=== PATIENT | female | born 1955 ===

== ENCOUNTER 2019-01-20 11:03 | Emergency (ER) | payer BC ==
[2019-01-20] MEDS ORDERED: Lidocaine 1% w EPI 1:100,000* MDV 20 ML VIAL INJ ONE (13:26)
--- NOTE | 2019-01-20 13:32 | UC ---
Laceration HPI - HPI Summary HPI Summary: 63-year-old female presents with complaints of left elbow injury with laceration. States yesterday she was walking while carrying some dishes when she missed a step down was in her balance and falling forward landing on her left knee and elbow. States the dishes broke and she fell onto several pieces of broken dishes. Complains of tenderness to the left elbow the reports has full range of motion. Bleeding was controlled with some direct pressure. Reports bruising to the anterior left knee although denies any pain and is able to walk and bear weight without complaint. States did not hit her head or lose consciousness. Reports is allergic to tetanus. Denies fever, chills, numbness , tingling. - History Of Current Complaint Chief Complaint: UCLaceration Stated Complaint: ELBOW LACERATION Time Seen by Provider: 01/20/19 12:42 Hx Obtained From: Patient Pain Intensity: 8 - Allergies/Home Medications Allergies/Adverse Reactions: Allergies Allergy/AdvReac Type Severity Reaction Status Date / Time aspirin Allergy Bleeding Verified 01/20/19 12:05 Tetanus Vaccines and Toxoid Allergy Hives/Diff. Verified 01/20/19 12:05 Breathing/I tching Home Medications: Home Medications Empagliflozin [Jardiance] 10 mg PO 01/20/19 [History] Fexofenadine (NF) [Sally 180 (NF)] 180 mg PO DAILY 01/20/19 [History Confirmed 01/20/19] Lisinopril/Hydrochlorothiazide [Lisinopril-Hctz 20-25 mg Tab] 1 each PO DAILY [History Confirmed 01/20/19] LoraTADine TAB(NF) [Claritin 10 MG TAB(NF)] 10 mg PO DAILY 01/20/19 [History Confirmed 01/20/19] Lovastatin (NF) [Mevacor (NF)] 10 mg PO 1800 01/20/19 [History Confirmed ] PMH/Surg Hx/FS Hx/Imm Hx Endocrine History: Diabetes, Dyslipidemia Cardiovascular History: Hypertension - Surgical History Surgical History: None - Family History Known Family History: Positive: Non-Contributory - Social History Lives: With Family Alcohol Use: Occasionally Substance Use Type: None Smoking Status (MU): Former Smoker - Immunization History Most Recent Tetanus Shot: UTD Review of Systems All Other Systems Reviewed And Are Negative: Yes Constitutional: Negative: Fever, Chills Skin: Positive: Other - See HPI Respiratory: Positive: Negative Cardiovascular: Positive: Negative Gastrointestinal: Positive: Negative Genitourinary: Positive: Negative Motor: Negative: Weakness Neurovascular: Negative: Decreased Sensation Musculoskeletal: Negative: Arthralgia, Decreased ROM Neurological: Positive: Negative Is Patient Immunocompromised?: No Physical Exam - Summary Physical Exam Summary: GENERAL APPEARANCE: Well developed, well nourished, alert and cooperative, and appears to be in no acute distress. HEAD: Atraumatic. Normocephalic. NECK: Neck supple, non-tender. Full ROM. CARDIAC: Normal S1 and S2. No S3, S4 or murmurs. Rhythm is regular. There is no peripheral edema, cyanosis or pallor. Extremities are warm and well perfused. Capillary refill is less than 2 seconds. Peripheral pulses intact. LUNGS: Clear to auscultation without rales, rhonchi, wheezing or diminished breath sounds. ABDOMEN: Positive bowel sounds. Soft, nondistended, nontender. No guarding or rebound. No masses or hepatosplenomegally. MUSKULOSKELETAL: ROM intact to all extremities. No joint erythema or tenderness. Normal muscular development. Normal gait. BACK: No spinal deformity or tenderness, decreased range of motion or muscular spasm. EXTREMITIES: Stellate T-shaped laceration to the left posterior elbow with bleeding controlled. Tenderness with palpation over the radial head. Full ROM. Circulation and sensation intact. Eccymosis to the anterior left knee over the patella without gross deformity. Full ROM. Circulation and sensation intact. SKIN: Skin normal color, texture and turgor. Triage Information Reviewed: Yes Vital Signs: Initial Vital Signs Temp 98.8 F 01/20/19 12:12 Pulse 87 01/20/19 12:12 Resp 17 01/20/19 12:12 BP 138/79 01/20/19 12:12 Pulse Ox 98 01/20/19 12:12 Vital Signs Reviewed: Yes Procedures - Procedure Summary Procedure Summary: Procedure note: Laceration repair left elbow Informed consent was obtained before procedure started and the appropriate timeout was taken. X-rays were reviewed prior to start of procedure. Local anesthesia was achieved using 3 ml of lidocaine 1% with epinephrine. The wound was thoroughly explored then copiously irrigated with sterile saline. There was some excess tissue along the edges of the wound which were sharply excised using iris scissors. The wound margins were brought into good alignment and 3 interrupted sutures were placed using 5-0 Ethilon. Total length of wound after repair was 1.5 cm. Estimated blood loss was minimal. A dressing was applied to the area by the RN. Anticipatory guidance, as well as standard post-procedure care was discussed with patient. Return precautions are given. The patient tolerated the procedure well without complications. Patient is to follow up in 10-14 days for suture removal and evaluation of the laceration. Diagnostics - Radiology No standard instances Radiology Interpretation Completed By: Radiologist Summary of Radiographic Findings: Order Information: ELBOW LEFT 3+VWS. INDICATION: LEFT elbow and upper arm pain following fall. Laceration and bruising. Assess for fracture and foreign body. COMPARISON: No relevant prior exams available on the [facility] PACS for comparison. TECHNIQUE: AP, lateral, and oblique views LEFT elbow. REPORT: Mild anterior fat pad displacement indicating a small joint effusion. No cortical disruption or suspicious trabecular irregularity to suggest fracture. Normal articular alignment. Nonfocal soft tissue swelling. No conspicuous foreign body evident. IMPRESSION : #. No foreign body evident. #. A radiographic occult fracture most typically involving the radial head is not entirely excluded given history of trauma and presence of joint effusion despite absence of a conspicuous fracture plane on the current exam. Laceration Course/Dx - Course/Dx Course Of Treatment: 63-year-old female presents with complaints of left elbow injury with laceration. States yesterday she was walking while carrying some dishes when she missed a step down was in her balance and falling forward landing on her left knee and elbow. States the dishes broke and she fell onto several pieces of broken dishes. Complains of tenderness to the left elbow the reports has full range of motion. Bleeding was controlled with some direct pressure. Reports bruising to the anterior left knee although denies any pain and is able to walk and bear weight without complaint. States did not hit her head or lose consciousness. Reports is allergic to tetanus. Denies fever, chills, numbness , tingling. Afebrile. Vital signs stable. Exam was remarkable for a stellate T-shaped laceration to the left posterior elbow with bleeding controlled. Tenderness with palpation over the radial head. Full ROM. Circulation and sensation intact. Eccymosis to the anterior left knee over the patella without gross deformity. Full ROM. Circulation and sensation intact. Remainder of exam was unremarkable. X-ray showed mild anterior fat pad displacement indicating a small joint effusion without cortical disruption or suspicious trabecular irregularity to suggest fracture. Reviewed results with the patient. After obtaining appropriate time out at achieving adequate anesthesia the laceration to the elbow was thoroughly explored and copiously irrigated by myself and then repaired using a total of 3 interrupted sutures using 5-0 Ethilon. Patient is to have sutures removed in 10-14 days. The wound was dressed and the patient was placed in a sling by the RN. I am recommending conservative treatment for a possible open radial head fracture including a course of Augmentin 875 mg twice a day 5 days for infection prophylaxis. Because the patient is from out of town, will have her follow-up with her primary care provider in 3-5 days for recheck of her injury. A CD of her x-rays was provided to the patient. Wound care, anticipatory guidance, and warning symptoms were reviewed with the patient. Verbalizes understanding and agrees with plan of care. - Differential Dx - Laceration/Wound Differental Diagnoses: Foreign Body, Fracture, Joint Space Violation, Laceration - Diagnosis Provider Diagnosis: Fracture of radial head, left, open, Laceration of left elbow Discharge ED - Sign-Out/Discharge Documenting (check all that apply): Patient Departure All imaging exams completed and their final reports reviewed: Yes - Discharge Plan Condition: Stable Disposition: HOME Prescriptions: Amoxicillin/Clavulanate TAB* [Augmentin TAB 875*] 875 mg PO BID #10 tab Patient Education Materials: Care For Your Stitches (ED), Laceration (ED), Elbow Fracture (ED) Referrals: No Primary Care Phys,NOPCP [Primary Care Provider] - Additional Instructions: The x-ray performed in the clinic today showed evidence of an effusion ( collection of blood or fluid) within the elbow joint. This finding is often indicative of a radial head fracture even when a fracture cannot be identified on the x-ray. With the laceration over the area of injury we will treat this as a possible open fracture and start you on an antibiotic to prevent infection. Start Augmentin 875 mg twice a day for 5 day. Take with food to avoid upset stomach. Be sure to complete the entire course. Rest the arm as much as possible. You should wear the sling that was applied in the clinic for the next 2 days for support. It is important that you remove your arm from the sling every 1-2 hours and perform gentle range of motion exercises while awake. Stop using the sling after 2 days but you should continue to do the range of motion exercises. Avoid heavy lifting or strenuous activity. Apply ice to the affected area for 15-20 minutes at least 4 times a day to help with the pain and swelling. Elevate the arm to help reduce swelling. Take acetaminophen (Tylenol) or ibuprofen (Advil, Motrin) according to directions as needed for pain. Follow up with your primary care provider in 3-5 days for recheck of symptoms. Seek immediate medical attention if you have severe pain not managed with pain medication, you are unable to walk or bear any weight, develop numbness or tingling in the arm,hands, or fingers, or have any worsening of symptoms. Laceration Care: Your laceration was repaired with a total of 3 stitches. Leave the dressing that was applied in the clinic in place for the next 24 hours. Be sure to keep it clean and dry. After 24 hours, you may remove the dressing and shower and wash hands as normal. Do not submerge the arm under water to prevent infection. Clean the wound with a mild soap and water at least once a day. Apply some antibiotic ointment and cover with a bandage. This should be changed at least once a day or any time the dressing becomes wet or soiled. Sutures will need to be removed in 10-14 days. You may return here or with your primary care provider to have this done. Watch for signs of infection including fever greater than 100.5 F, severe pain not managed with pain medication, redness that spreads, swelling of the hand/ fingers, or pus draining from the wound. Seek immediate medical attention should any of these occur. - Billing Disposition and Condition Condition: STABLE Disposition: Home
[2019-01-20] MEDS ORDERED: Lidocaine 1% w EPI 1:200,000* SDV 30 ML VIAL ONE (13:43)
[2019-01-20] MEDS ORDERED: Lidocaine 1% w EPI 1:200,000* SDV 30 ML VIAL INJ ONE (14:20)
== END 2019-01-20 14:30 | disposition home or self-care (01) ==
LOC: UCEAST 11:03
DX: S51.012A Laceration without foreign body of left elbow, initial encounter (principal); S52.122B Displaced fracture of head of left radius, initial encounter for open fracture type I or II; E11.9 Type 2 diabetes mellitus without complications; I10 Essential (primary) hypertension; E78.5 Hyperlipidemia, unspecified; Z88.6 Allergy status to analgesic agent; Z88.7 Allergy status to serum and vaccine; Z79.899 Other long term (current) drug therapy; Z79.84 Long term (current) use of oral hypoglycemic drugs; Z87.891 Personal history of nicotine dependence; W10.9XXA Fall (on) (from) unspecified stairs and steps, initial encounter; Y92.9 Unspecified place or not applicable
CPT/HCPCS: 12001; 99202; G0463; J2001